=== PATIENT | female | born 1960 | race Hispanic/Latino ===

== ENCOUNTER 2018-07-27 10:33 | Emergency (ER) | payer BC ==
[2018-07-27 10:43] VITALS: O2SAT 97
[2018-07-27] MEDS ORDERED: Sodium Chloride 0.9% 1,000 ML IV STA (11:27)
[2018-07-27] MEDS ORDERED: Lidocaine 116 MG in Sodium Chloride 0.9% 100 ML IV STA (11:27)
--- NOTE | 2018-07-27 11:27 | C.PDOC ---
History Of Present Illness 57 year old female presents to the emergency department with complaints of right flank pain radiating to the groin which began last night. Patient states that she took two Ibuprofen before going to bed, yet the pain was present upon waking up this morning. Patient reports three episodes of vomiting this morning, but denies dysuria, incontinence, and hematuria. Patient reports that the pain has greatly subsided now in the ED, describing it as a 3/10. Time Seen by Provider: 07/27/18 10:48 Chief Complaint (Nursing): Abdominal Pain History Per: Patient History/Exam Limitations: no limitations Onset/Duration Of Symptoms: Days (1) Current Symptoms Are (Timing): Better Location Of Pain/Discomfort: Other (right flank) Radiation Of Pain To:: Other (right groin) Quality Of Discomfort: "Pain" Associated Symptoms: Vomiting, Back Pain. denies: Fever, Chills, Nausea, Urinary Symptoms Exacerbating Factors: None Past Medical History Reviewed: Historical Data, Nursing Documentation, Vital Signs Vital Signs: Last Vital Signs Temp 98.4 F 07/27/18 10:41 Pulse 83 07/27/18 10:41 Resp 19 07/27/18 10:41 BP 138/88 07/27/18 10:41 Pulse Ox 97 07/27/18 10:41 - Medical History PMH: No Chronic Diseases Surgical History: No Surg Hx Family History: States: No Known Family Hx - Social History Hx Alcohol Use: No Hx Substance Use: No - Immunization History Hx Tetanus Toxoid Vaccination: No Hx Influenza Vaccination: Yes Hx Pneumococcal Vaccination: No Review Of Systems Except As Marked, All Systems Reviewed And Found Negative. Constitutional: Negative for: Fever, Chills Gastrointestinal: Positive for: Vomiting. Negative for: Nausea Genitourinary: Negative for: Dysuria, Hematuria Musculoskeletal: Positive for: Back Pain. Negative for: Neck Pain Physical Exam - Physical Exam Appears: Non-toxic, No Acute Distress Skin: Warm, Dry Head: Atraumatic, Normacephalic Eye(s): bilateral: Normal Inspection, PERRL, EOMI Oral Mucosa: Moist Neck: Normal, Supple Chest: Symmetrical, No Deformity Cardiovascular: Rhythm Regular, No Murmur Respiratory: No Rales, No Rhonchi, No Wheezing Gastrointestinal/Abdominal: Soft, No Tenderness, No Guarding, No Rebound Back: Normal Inspection, No CVA Tenderness, No Paraspinal Tenderness Extremity: Normal ROM Neurological/Psych: Oriented x3, Normal Speech, Normal Cognition Gait: Steady ED Course And Treatment - Laboratory Results Result Diagrams: 07/27/18 12:14 07/27/18 12:14 O2 Sat by Pulse Oximetry: 97 (RA) Pulse Ox Interpretation: Normal - CT Scan/US CT Abdomen and Pelvis Other Rad Studies (CT/US): Read By Radiologist, Radiology Report Reviewed CT/US Interpretation: IMPRESSION: Mild right hydronephrosis and hydroureter up to 3 millimeter calculus at the mid right ureter. Prominent mesenteric lymph nodes noted around the mesenteric root of uncertain etiology. Otherwise no evidence of acute pathology in the abdomen and pelvis. Progress Note: Plan: CT Abdomen and Pelvis. BMP. CBC. Flomax 0.4mg PO. NaCl IV Fluids. Toradol 30mg IVP. Tylenol 975mg PO. POC Urine Reevaluation Time: 12:54 Reassessment Condition: Improved Disposition Counseled Patient/Family Regarding: Studies Performed, Diagnosis, Need For Followup, Rx Given - Disposition Referrals: YOUR,PMD [Other] Disposition: HOME/ ROUTINE Disposition Time: 12:54 Condition: IMPROVED Prescriptions: Ibuprofen [Motrin] 600 mg PO Q6 #30 tab Ondansetron [Zofran Odt] 4 mg PO TID PRN #9 odt PRN Reason: Nausea/Vomiting Tamsulosin [Flomax] 0.4 mg PO DAILY #14 cap Instructions: Kidney Stones (DC) Forms: [facility] (Thai) - Clinical Impression Clinical Impression: Kidney stone - Scribe Statement The provider has reviewed the documentation as recorded by the Scribe (Bryan Leonardo) Provider Attestation: All medical record entries made by the Scribe were at my direction and personally dictated by me. I have reviewed the chart and agree that the record accurately reflects my personal performance of the history, physical exam, medical decision making, and the department course for this patient. I have also personally directed, reviewed, and agree with the discharge instructions and disposition.
--- NOTE | 2018-07-27 11:27 | C.PDOC ---
Time Seen by Provider: 07/27/18 10:48 Chief Complaint (Nursing): Abdominal Pain Past Medical History Vital Signs: Last Vital Signs Temp 98.4 F 07/27/18 10:41 Pulse 83 07/27/18 10:41 Resp 19 07/27/18 10:41 BP 138/88 07/27/18 10:41 Pulse Ox 97 07/27/18 10:41 - Social History Hx Alcohol Use: No Hx Substance Use: No - Immunization History Hx Tetanus Toxoid Vaccination: No Hx Influenza Vaccination: Yes Hx Pneumococcal Vaccination: No ED Course And Treatment O2 Sat by Pulse Oximetry: 97 Disposition - Disposition
[2018-07-27] MEDS ORDERED: Sodium Chloride 0.9% 1,000 ML ONE (11:36)
[2018-07-27 12:17] LABS: BASO % 0.6 % (0.0-2.0); EOS # 0.1 K/uL (0.0-0.7); HEMOGLOBIN 13.4 g/dL (11.0-16.0); LYMPH # 1.4 K/uL (1.0-4.3); LYMPH % 17.9 % (20.0-40.0); MEAN CELL VOLUME 93.8 fL (81.0-99.0); MEAN CORPUSCULAR HEMOGLOBIN 31.9 pg (27.0-31.0); MEAN PLATELET VOLUME 7.4 fL (7.2-11.7); MONO # 0.4 K/uL (0.0-0.8); MONO % 5.7 % (0.0-10.0); NEUT # 5.6 K/uL (1.8-7.0); NEUT % 73.8 % (50.0-75.0); NRBC % 0.1 % (0.0-2.0); RBC 4.19 Mil/uL (3.80-5.20); RED CELL DISTRIBUTION WIDTH 13.5 % (11.5-14.5); WHITE BLOOD COUNT 7.6 K/uL (4.8-10.8)
[2018-07-27 12:28] LABS: BLOOD UREA NITROGEN 15 mg/dL (7-17); CALCIUM 9.2 mg/dl (8.6-10.4); GFR NON-AFRICAN AMERICAN > 60
--- NOTE | 2018-07-27 12:35 | CT ---
Date of service: 07/27/2018 PROCEDURE: CT Abdomen and Pelvis without intravenous contrast HISTORY: R FLANK PAIN COMPARISON: None. TECHNIQUE: Axial and reformatted coronal and sagittal CT images of the abdomen and pelvis were obtained without IV contrast administration.. Contrast dose: Radiation dose: Total exam DLP = 0 mGy-cm. This CT exam was performed using one or more of the following dose reduction techniques: Automated exposure control, adjustment of the mA and/or kV according to patient size, and/or use of iterative reconstruction technique. FINDINGS: LOWER THORAX: No evidence of acute pathology. Minimal bibasilar atelectasis noted. LIVER: Unremarkable. No gross lesion or ductal dilatation. GALLBLADDER AND BILE DUCTS: Unremarkable. PANCREAS: Unremarkable. No gross lesion or ductal dilatation. SPLEEN: Unremarkable. ADRENALS: Unremarkable. No mass. KIDNEYS AND URETERS: There is mild right hydronephrosis and hydroureter up to 3 millimeter calculus at the mid right ureter. VASCULATURE: Unremarkable. No aortic aneurysm. No aortic atherosclerotic calcification or mural plaque present. BOWEL: Unremarkable. No obstruction. No gross mural thickening. APPENDIX: Unremarkable. Normal appendix. PERITONEUM: Mesenteric stranding and prominent mesenteric lymph nodes noted around the mesenteric root.. No free fluid. No free air. LYMPH NODES: Unremarkable. No enlarged lymph nodes. BLADDER: Unremarkable. REPRODUCTIVE: The the patient is likely status post hysterectomy. BONES: No acute fracture. OTHER FINDINGS: None. IMPRESSION: Mild right hydronephrosis and hydroureter up to 3 millimeter calculus at the mid right ureter. Prominent mesenteric lymph nodes noted around the mesenteric root of uncertain etiology. Otherwise no evidence of acute pathology in the abdomen and pelvis.
[2018-07-27 13:14] VITALS: BP 123/78; PULSE 62; RESP 18; TEMP 98.2
[2018-07-27 13:19] LABS: URINE BACTERIA RARE (<OCC); URINE BILIRUBIN NEGATIVE (NEGATIVE); URINE BLOOD 3+ (NEGATIVE); URINE CLARITY Hazy (Clear); URINE COLOR Yellow (YELLOW); URINE GLUCOSE (UA) NORMAL (Normal); URINE LEUKOCYTE ESTERASE NEG Leu/uL (Negative); URINE PROTEIN NEGATIVE (NEGATIVE); URINE UROBILINOGEN NORMAL mg/dL (0.2-1.0)
== END 2018-07-27 13:51 | disposition home or self-care (01) ==
LOC: C.ER 10:33
DX: N13.2 Hydronephrosis with renal and ureteral calculous obstruction (principal)
CPT/HCPCS: 74176; 80048; 81001; 85025; 96360; 99284; J2001; J7030